=== PATIENT | female | born 1975 | race Asian ===

== ENCOUNTER → 2017-10-02 | Outpatient (CLI) | payer BC | LOC: MC.RAD 14:33 | DX: Z12.31 Encounter for screening mammogram for malignant neoplasm of breast (principal) ==

== ENCOUNTER → 2018-11-03 | Outpatient (CLI) | payer BC | LOC: MC.RAD 15:19 | DX: Z12.31 Encounter for screening mammogram for malignant neoplasm of breast (principal) ==

== ENCOUNTER → 2020-11-14 | Outpatient (CLI) | payer BC | LOC: MC.RAD 14:14 | DX: Z12.31 Encounter for screening mammogram for malignant neoplasm of breast (principal) ==

== ENCOUNTER 2023-04-19 12:34 | Emergency (ER) | payer BC ==
[~2023-04-19] VITALS: Ht 165.1 cm; Wt 61.4 kg
[2023-04-19 12:41] VITALS: TEMP 98
[2023-04-19] MEDS ORDERED: NS 1,000 ML IV ONE (13:00)
[2023-04-19 13:10] LABS: BASO # 0.1 K/mm3 (0.0-0.2); BASO % 0.7 % (0.0-2.0); EOS # 0.5 K/mm3 (0.0-0.7); EOS % 3.9 % (0.0-4.0); GRAN # 8.3 K/mm3 (1.4-6.5); GRAN % 67.5 % (42.2-75.2); HEMATOCRIT 40.4 % (37.0-47.0); HEMOGLOBIN 13.3 g/dl (12.5-16.0); LYMPH % 24.2 % (20.0-51.0); MEAN CELL VOLUME 96 fl (80.0-100.0); MEAN CORPUSCULAR HEMOGLOBIN 32 pg (27-31); MEAN CORPUSCULAR HGB CONC 33 g/dl (33.0-37.0); MEAN PLATELET VOLUME 10.5 fl (7.4-10.4); MONO # 0.4 K/mm3 (0.1-0.6); MONO % 3.4 % (1.7-9.3); PLATELET COUNT 213 K/mm3 (130-400); REDCELL DISTRIBUTION WIDTH-CV 12.7 % (11.5-14.5)
[2023-04-19] MEDS ORDERED: Ketorolac 30 MG/ML VIAL IV ONE (13:15)
[2023-04-19 13:22] LABS: ALBUMIN 3.7 gm/dL (3.5-5.0); BILIRUBIN,TOTAL 0.7 mg/dL (0.2-1.2); CALCIUM 9.3 mg/dL (8.4-10.2); CREATININE, serum 0.71 mg/dL (0.57-1.11); POTASSIUM 3.4 mmol/L (3.5-4.5); TOTAL PROTEIN 6.1 gm/dL (6.2-8.1)
[2023-04-19] MEDS ORDERED: LORazepam 2 MG/ML 1 ML VIAL IV ONE (13:30)
[2023-04-19] MEDS ORDERED: Lidocaine 2% (20 MG/ML) 20 ML UROJET RC ONE (15:00)
[2023-04-19 16:38] LABS: COLLECTION METHOD CLEAN CATCH
[2023-04-19 17:15] LABS: PH 6.5 (5.0-8.5); URINE APPEARANCE Clear (CLEAR/HAZY); URINE BLOOD 2+ (NEGATIVE); URINE COLOR Yellow (YELLOW); URINE GLUCOSE Negative (NEGATIVE); URINE KETONE Negative (NEGATIVE); URINE NITRATE Negative (NEGATIVE); URINE PROTEIN(semi-quant) Negative (NEGATIVE); URINE UROBILINOGEN 0.2 E.U/dL (0.2-1.0)
[2023-04-19] MEDS ORDERED: Morphine 4 MG/ML VIAL IV ONE (17:15)
[2023-04-19 17:16] LABS: SQUAMOUS EPITHELIAL None Seen /hpf (0-10); URINE RBC 0-2 /hpf (0-2)
[2023-04-19 17:26] VITALS: BP 131/86; PULSE 78
== END 2023-04-19 17:30 | disposition home or self-care (01) ==
LOC: COL.ER 12:34
PROVIDERS: Physician Assistant
DX: K62.89 Other specified diseases of anus and rectum (principal); K59.00 Constipation, unspecified; F17.210 Nicotine dependence, cigarettes, uncomplicated; Z98.890 Other specified postprocedural states
CPT/HCPCS: J1885; J2060; J2270; J7030

== ENCOUNTER → 2023-12-11 | Outpatient (CLI) | payer BC | LOC: MC.RAD 07:40 | DX: Z12.31 Encounter for screening mammogram for malignant neoplasm of breast (principal) ==

== ENCOUNTER → 2024-01-21 | Outpatient (CLI) | payer BC | LOC: MHCPAIN 08:43 | DX: M47.812 Spondylosis without myelopathy or radiculopathy, cervical region (principal); M96.1 Postlaminectomy syndrome, not elsewhere classified; M48.02 Spinal stenosis, cervical region; G89.29 Other chronic pain | CPT/HCPCS: G0463 ==

== ENCOUNTER → 2024-01-26 | Outpatient (CLI) | payer BC ==
[~2024-01-26] MED LIST: Iohexol 300 - 10 ML VIAL ONE; Lidocaine PF 2% (20 MG/ML) 2 ML VIAL ONE
== END ==
LOC: MHCPAIN 09:45
DX: M54.12 Radiculopathy, cervical region (principal); Z98.1 Arthrodesis status
CPT/HCPCS: J1100; Q9967